=== PATIENT | male | born 1955 | race Caucasian/White ===

== ENCOUNTER → 2022-10-10 13:26 | Outpatient (BNVA) | payer OTHER, SELFPAY | PROVIDERS: PCP Family Medicine Adult Medicine; Visit Provider Family Medicine Adult Medicine | DX: N41.0 Acute prostatitis (principal); N40.0 Benign prostatic hyperplasia without lower urinary tract symptoms | CPT/HCPCS: 81000 ==

== ENCOUNTER → 2023-01-27 14:06 | Outpatient (BNVA) | payer OTHER, SELFPAY | PROVIDERS: PCP Family Medicine Adult Medicine; Visit Provider Family Medicine Adult Medicine | DX: I10 Essential (primary) hypertension (principal); N40.0 Benign prostatic hyperplasia without lower urinary tract symptoms | CPT/HCPCS: 80053; 80061; 84443; 85025; G0103 ==

== ENCOUNTER → 2023-03-28 09:11 | Outpatient (BNVA) | payer OTHER, SELFPAY | PROVIDERS: PCP Family Medicine Adult Medicine; Visit Provider Family Medicine Adult Medicine | DX: R30.0 Dysuria (principal); N41.1 Chronic prostatitis; N40.0 Benign prostatic hyperplasia without lower urinary tract symptoms; N41.0 Acute prostatitis; N39.0 Urinary tract infection, site not specified | CPT/HCPCS: 81000 ==

== ENCOUNTER → 2023-04-16 10:10 | Outpatient (BNVA) | payer OTHER, SELFPAY | PROVIDERS: PCP Family Medicine Adult Medicine; Visit Provider Nurse Practitioner Family | DX: M25.521 Pain in right elbow (principal) | CPT/HCPCS: 73070 ==

== ENCOUNTER → 2023-12-23 09:00 | Outpatient (BNVA) | payer OTHER, SELFPAY | PROVIDERS: PCP Family Medicine Adult Medicine; Visit Provider Family Medicine Adult Medicine | DX: I10 Essential (primary) hypertension (principal); N41.1 Chronic prostatitis; N40.1 Benign prostatic hyperplasia with lower urinary tract symptoms | CPT/HCPCS: 80053; 80061; G0103 ==

== ENCOUNTER 2024-01-22 06:50 | Outpatient (CLI) | payer MEDICARE, SELFPAY ==
--- NOTE | 2024-01-22 07:15 | USCV_ITS ---
Silver Luna Age: 68 Gender: M : 1955 Exam Date: 01/22/2024 07:00 Ordering Phys: Doug Macedo MD Technologist: Exam Location: [facility] [place]_ Indication: ao pros porcine BP: 120 / 70 HR: 86 Rhythm: Sinus Technical Quality: MEASUREMENTS (Male / Female) Normal Values 2D ECHO LV Diastolic Diameter PLAX 4.2 cm 4.2 - 5.9 / 3.9 - 5.3 cm IVS Diastolic Thickness 1.3 cm 0.6 - 1.0 / 0.6 - 0.9 cm IVS Systolic Thickness 1.9 cm LVPW Diastolic Thickness 1.5 cm 0.6 - 1.0 / 0.6 - 0.9 cm LVPW Systolic Thickness 1.3 cm LVOT Diameter 2.0 cm LV Ejection Fraction 2D Teich 63.0 % LV Ejection Fraction MOD 2C 60.9 % LV Ejection Fraction 2C AL 61.0 % LA Diameter 4.6 cm RA Systolic Volume 4C AL 40.2 ml RA Systolic Volume 4C MOD 39.7 ml M-MODE LA Ao Ratio MM 1.7 AV Cusp Separation MM 2.2 cm DOPPLER AV Peak Velocity 143.8 cm/s LVOT Peak Velocity 99.0 cm/s AV Area Cont Eq vti 2.3 cm squared AV Area Cont Eq pk 2.3 cm squared MV Area PHT 3.6 cm squared Mitral E to A Ratio 1.1 TR Peak Velocity 127.0 cm/s TR Peak Gradient 6.5 mmHg TV Peak E Velocity 88.0 cm/s Right Atrial Pressure 3.0 mmHg Pulmonary Artery Systolic Pressu 9.5 mmHg PV Peak Velocity 120.0 cm/s FINDINGS Left Ventricle Left ventricle is normal in size. LV systolic function is normal with EF of 55-60%. No regional wall motion abnormalities are seen. Right Ventricle Normal in size and function Right Atrium Normal in size Left Atrium Normal in size Mitral Valve Structurally normal valve. Trace mild regurgitation. Aortic Valve Bioprosthetic aortic valve is seen. DVI is 0.65. No significant stenosis. No significant regurgitation. Tricuspid Valve Insufficient TR jet to calculate RVSP. Pulmonic Valve Not well visualized Pericardium Normal Aorta Appears to be normal IVC Not well visualized CONCLUSIONS LV systolic function is normal with EF of 55 to 60%. Trace mitral regurgitation Bioprosthetic aortic valve is functioning appropriately. No comparison studies are available. Neo Merrill MD (Electronically Signed) Final Date: 25 January 2024 10:32 S
== END 2024-01-22 06:51 | disposition home or self-care (01) ==
LOC: RAD 06:50
PROVIDERS: PCP Family Medicine Adult Medicine; Visit Provider Family Medicine Adult Medicine
DX: Z98.890 Other specified postprocedural states (principal); Z95.2 Presence of prosthetic heart valve; I34.0 Nonrheumatic mitral (valve) insufficiency
CPT/HCPCS: 93306

== ENCOUNTER → 2024-12-29 09:37 | Outpatient (BNVA) | payer MEDICARE, SELFPAY | PROVIDERS: PCP Family Medicine; Visit Provider Family Medicine | DX: Z12.5 Encounter for screening for malignant neoplasm of prostate (principal); I10 Essential (primary) hypertension; N40.1 Benign prostatic hyperplasia with lower urinary tract symptoms | CPT/HCPCS: 80053; 80061; 84153; 85025 ==

== ENCOUNTER 2025-03-07 07:36 | Emergency (ER) | payer MEDICARE, SELFPAY ==
[2025-03-07 08:41] VITALS: BP 150/95; PULSE 79; RESP 16; TEMP 36.8; O2SAT 95; BMI 29.1
--- NOTE | 2025-03-07 08:45 | W.ED.GENADLT ---
HPI - General Adult General: Chief complaint: Wound/Laceration Stated complaint: bite on L arm Time Seen by Provider: 03/07/25 08:35 History of Present Illness: 69-year-old male presents emergency room with complaint of reddened inflamed area on the proximal portion of the left ulnar ridge near the olecranon. This came up over the last week he does not recall any specific injury does work outside a lot he may have bumped it or scratched it on something. He is not allergic to any medications that he knows no. He is unsure of his last tetanus shot. He denies any fever sweats or chills he has manipulated the wound a bit and got a small amount of drainage from it. Related Data Home Medications ?Medication ?Instructions ?Recorded ?Confirmed aspirin 81 mg chewable tablet 81 mg PO DAILY 06/28/22 12/29/24 cholecalciferol (vitamin D3) 25 25 mcg PO DAILY 06/28/22 12/29/24 mcg (1,000 unit) capsule multivitamin 1 tab PO DAILY 06/28/22 12/29/24 Previous Rx's ?Medication ?Instructions ?Recorded triamcinolone acetonide 0.1 % 1 applic topical DAILY contact 06/28/22 topical cream dermatits #80 grams lansoprazole 15 mg capsule,delayed See Rx Instructions .Route 09/19/22 release .COMPLEX #90 caps lisinopril 5 mg tablet 5 mg PO DAILY BP & kidney health 12/29/24 90 days #90 tabs tamsulosin 0.4 mg capsule 0.4 mg PO DAILY urine flow #90 caps 12/29/24 sulfamethoxazole 800 1 tab PO BID 7 days #14 tabs 03/07/25 mg-trimethoprim 160 mg tablet (Bactrim DS) Allergies Allergy/AdvReac Type Severity Reaction Status Date / Time titanium Allergy Unknown Verified 03/07/25 08:41 Review of Systems Const: Denies: fever(s) or chills Skin/Breast: Reports: pruritus, erythema, skin tenderness and new lesions [facility] PFSH: Medical History BPH loc w urin obs/LUTS Chronic prostatitis Excessive cerumen in both ear canals GERD (gastroesophageal reflux disease) Hypertension Surgical History S/P aortic valve replacement History of open heart surgery 2010 aortic valve replacement History of foot surgery 2013 History of knee surgery Family History Father Lung disease emphysema Mother Cancer breast cancer Dementia Hypertension Denies family history of Diabetes CAD (coronary artery disease) Clotting disorder Hyperlipidemia Chronic kidney disease (CKD) Anesthesia complication Bleeding disorder Stroke Social History Smoking and tobacco/nicotine status: former use of tobacco/nicotine Alcohol intake: current Alcohol intake frequency: holidays/special occasions only Alcohol type: beer Substance/Drug Use: never Caregiver/support person: No Lives independently: Yes Household members: spouse Marital status: service: No Current occupational status: retired Do you think of yourself as: Straight/Heterosexual Current gender identity: Male Shabnam/Jehovah'S Witness: Sikhism Special shabnam needs: No Agree to transfusion: Yes Physical Exam Extremity: OTHER: Examination proximal left ulnar ridge there is some sharply demarcated redness and irritation or raised lesions. It is central there is a partially deroofed furuncle. Can express purulent drainage from that there is some what of a blood tinge to it. There is no necrosis. No axillary or epitrochlear lymph nodes noted. Course Vital Signs: Vital signs: Vital Signs Temperature 98.2 F 03/07/25 08:41 Pulse Rate 79 03/07/25 08:41 Respiratory Rate 16 03/07/25 08:41 Blood Pressure 150/95 03/07/25 08:41 Pulse Oximetry 95 03/07/25 08:41 Oxygen Delivery Me thod Room Air 03/07/25 08:41 MDM - General Adult Medical Decision Making Localized staph infection. He has a central area that has some purulent some light bloody fluid drainage with attempts at expression. Its mildly tender. Drainage is very scant what we were able to express was cultured. Start patient on Bactrim DS 1 p.o. twice daily for a week. Tetanus updated follow-up with his primary care doctor. Medical Records I reviewed the patient's medical records. Lab Data I reviewed the patient's lab results. No radiology studies performed this visit Discharge Plan Discharge Patient Disposition: Home Clinical Impression: Cellulitis of arm, left Condition: Stable Prescriptions: New sulfamethoxazole-trimethoprim [Bactrim DS] 800-160 mg tablet 1 tab PO BID 7 Days Qty: 14 0RF No Action lisinopril 5 mg tablet 5 mg PO DAILY 90 Days Qty: 90 1RF tamsulosin 0.4 mg capsule 0.4 mg PO DAILY Qty: 90 1RF aspirin 81 mg tablet,chewable 81 mg PO DAILY cholecalciferol (vitamin D3) 25 mcg (1,000 unit) capsule 25 mcg PO DAILY multivitamin Tablet 1 tab PO DAILY triamcinolone acetonide 0.1 % cream 1 applic topical DAILY Qty: 80 1RF lansoprazole 15 mg capsule,delayed release(DR/EC) See Rx Instructions .ROUTE .COMPLEX Qty: 90 1RF Dose Instruction: TAKE 1 CAPSULE BY MOUTH DAILY NEEDED FOR STOMACH ACID OR REFLUX Rx Instructions: TAKE 1 CAPSULE BY MOUTH DAILY NEEDED FOR STOMACH ACID OR REFLUX Discharge Orders: Discharge ED (Routine); Ordered 03/07/25 Ordered By: Mic Perdue Referrals: Brad Colbert MD [Primary Care Provider, Family Practice] Discharge Diet: Usual diet Discharge Activity: Resume usual activity Patient Instructions: Opioid Safety, Pain Management Activity Restrictions/Additional Instructions: Thank you for choosing [facility] for your healthcare needs today. It is very important that you follow up as instructed or that you return to the Emergency Department should you have concerns or if your condition changes or worsens in any way. You were seen in the emergency room with complaints of an infection on your left forearm near the elbow. Infection appears localized we did do a culture of the wound updated your tetanus started you on oral antibiotics. You should take 1 pill twice a day until you have completed a weeks worth. If symptoms worsen or change follow-up either with your primary care doctor or return to the emergency room Print Language: Argentine Coding Level of Care Code ED Clinical Systems Analyst for Ty Mclean
[2025-03-07] MEDS: tetanus-dipt-pertussis 0.5 mL SDV IM (08:59)
== END 2025-03-07 09:13 | disposition home or self-care (01) ==
PROVIDERS: Emergency Provider Family Medicine; PCP Family Medicine
DX: L03.114 Cellulitis of left upper limb (principal); Z23 Encounter for immunization
CPT/HCPCS: 87070; 90471; 90715; 99283